=== PATIENT | male | born 1965 | race Caucasian/White ===

== ENCOUNTER 2016-05-01 10:30 | Outpatient (CLI) | payer OTHER ==
--- NOTE | 2016-05-01 12:54 | DIAGNOSTIC IMAGING REPORT ---
PROCEDURE: MR LOWER EXT JOINT WO CONT-RT INDICATION: Right knee medial pain, initial encounter TECHNIQUE: T1 and STIR sagittal, axial, coronal and coronal-oblique images. COMPARISON: Outside right knee x-ray 04/23/2016 FINDINGS: Normal cruciate and collateral ligaments. Bucket-handle tear of the medial meniscus with mild chondromalacia. Normal lateral meniscus. Normal quadriceps and patellar tendons. There is fragmentation of the anterior tibial tubercle with minor inflammatory changes. 2.5 cm long popliteal cyst. There is a 4 x 2 x 0.6 cm multi septated fluid collection along the posterior medial aspect of the medial femoral condyle. There is no joint effusion. IMPRESSION: 1. 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 Fragmentation of the anterior tibial tubercle with minor inflammatory changes 3. 2.5 cm popliteal cyst 4. Multiseptated fluid collection along the posterior medial aspect of the medial femoral condyle
== END 2016-05-01 23:00 ==
LOC: MRI SRH 10:30
DX: S83.211A Bucket-handle tear of medial meniscus, current injury, right knee, initial encounter (principal); M71.21 Synovial cyst of popliteal space [Baker], right knee; M94.261 Chondromalacia, right knee

== ENCOUNTER 2016-05-17 12:05 | Outpatient (CLI) | payer OTHER ==
--- NOTE | 2016-05-17 12:38 | DIAGNOSTIC IMAGING REPORT ---
PROCEDURE: XR CHEST 2 VIEW INDICATION: PRE OP TECHNIQUE: PA and lateral views. COMPARISON: None. FINDINGS: Lungs are clear. Heart and mediastinum are normal. Thorax is normal. IMPRESSION: 1. Negative chest.
== END 2016-05-17 23:00 ==
LOC: RT SRH 12:05
DX: Z01.810 Encounter for preprocedural cardiovascular examination (principal); Z01.818 Encounter for other preprocedural examination; R00.1 Bradycardia, unspecified

== ENCOUNTER 2016-05-19 06:12 | Day surgery (SDC) | payer OTHER ==
--- NOTE | 2016-05-19 08:04 | Preoperative Progress Note ---
Preop Note Details Current Status: No Changes Physical Exam: No Changes Necessity: Still desired/necessary Other: CV Reviewed, Respiratory Reviewed, Review JOSEPH notes & Vitals
--- NOTE | 2016-05-19 08:04 | Preoperative Progress Note ---
Preop Note Details Current Status: No Changes Physical Exam: No Changes Necessity: Still desired/necessary Other: CV Reviewed, Respiratory Reviewed, Review JOSEPH notes & Vitals
--- NOTE | 2016-05-19 09:09 | Postoperative Progress Note ---
Postop Progress Note Preoperate Diagnosis: Displaced old bucket handle medial meniscus tear, right. Postoperative Diagnosis: same Surgeon: Fili Aranda MD Anesthesia: General ETT Findings: See dictation Procedure: Arthroscopic subtotal right medial menisectomy Complications? No Condition: Stable EBL: <10 mL Fluid(s): 600 mL Blood Administered: None Specimen(s) removed? No Grafts or Implants? No . (See nursing notes for details of grafts/implants)
--- NOTE | 2016-05-19 09:09 | Postoperative Progress Note ---
Postop Progress Note Preoperate Diagnosis: Displaced old bucket handle medial meniscus tear, right. Postoperative Diagnosis: same Surgeon: iFli Aranda MD Anesthesia: General ETT Findings: See dictation Procedure: Arthroscopic subtotal right medial menisectomy Complications? No Condition: Stable EBL: <10 mL Fluid(s): 600 mL Blood Administered: None Specimen(s) removed? No Grafts or Implants? No . (See nursing notes for details of grafts/implants)
[2016-05-19] MEDS ORDERED: NORCO1 TA1 PO (09:28)
--- NOTE | 2016-05-19 14:48 | OPERATIVE REPORT ---
DATE OF SURGERY: 05/19/2016 SURGEON: Fili Aranda MD PREOPERATIVE DIAGNOSIS: 1. 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 Arthroscopic subtotal right medial meniscectomy ANESTHESIA: General. ESTIMATED BLOOD LOSS: Less than 10 mL. FLUIDS: Blood replacement: 600 mL intravenous crystalloid fluids. PATHOLOGY SPECIMEN: None. DRAINS: None. COMPLICATIONS: None apparent. CONDITION: The patient, leaving the operating room, was stable and satisfactory. 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 He continues to have popping, locking, and catching symptoms. An MRI confirms a displaced bucket-handle medial meniscus tear. He was indicated for the above-listed surgery to help with his mechanical symptoms and hopefully slow the progression of degenerative joint disease. SURGICAL FINDINGS: Preoperative imaging was confirmed. The knee was stable to Ligamentous exam under anesthesia. There were some grade 1 chondral changes on the retropatellar surface and grade 1-2 chondral changes in the medial compartment. The lateral meniscus, anterior and posterior cruciate ligaments, popliteal tendon were all intact. SURGICAL TECHNIQUE: The patient was identified in the preoperative holding area. All of his questions were further invited and answered to his satisfaction. I initialed his knee with his consent. He was seen and interviewed by Anesthesia and nursing team members, and brought back to operating room #2 at [facility], where he was placed supine on the OR table and general anesthesia was administered along with 2 grams of cefazolin intravenously for antibiotic prophylaxis. Pneumatic compression device was brought on the nonoperative lower extremity for thromboembolic prophylaxis during the patient's time in the operating room. The patient was positioned with a bump behind the operative hip and transversely across the foot of the table on the operative side. The tourniquet was placed with adequate padding about the proximal aspect of the right upper leg and isolated off with plastic adhesive U drape. A surgical pause was completed, confirming correct patient, operative site, procedure, and appropriate availability of instruments, appropriate perioperative antibiotic delivery and thromboembolic prophylaxis as described above. Everyone in the room , including surgical, nursing and anesthetic team members, were in agreement that we should proceed. The leg was circumferentially prepped with ChloraPrep and the tourniquet to the tips of the toes draped free in a water-proof, sterile fashion for surgery. The knee was inflated with 0.25% Marcaine via superolateral portal position. The portal was established for outflow. The knee was then flexed. The anterolateral portal was established for the arthroscope. The knee was systematically examined, beginning in the suprapatellar pouch. The retropatellar surface, femoral trochlea, distal femoral condyles, medial gutter and medial compartment in the valgus stress position. Anteromedial portal was established under spinal needle guidance. The complex displaced bucket-handle tear of the medial meniscus was readily apparent once we entered into the medial gutter, in the medial compartment. It was chronic, and the meniscal displacement was not able to be reduced with a nerve hook. The anterior and posterior cruciate ligaments were seen to be intact, as was the popliteal tendon and lateral meniscus when we entered the figure-of- four position. We then went back to the valgus stress position and examined the lateral gutter and popliteal tendon sheath and found no loose bodies there. A biter was then brought in, and the posterior horn of the displaced bucket- handle tear of the medial meniscus was transected. The meniscus was then grasped and pulled through the anteromedial portal. The portal was large enough for us to introduce the shaver and to trim up the free edge of the residual meniscus back to a stable rim. Ultimately, an arthroscopic scissors was used to divide the attachment of the displaced bucket- handle fragment from the anterior root. The shaver was reintroduced into the knee, and the final unstable portions of the meniscus were removed and final arthroscopic pictures taken, to be charted and given to the patient. The portals were closed with nylon mattress sutures. The knee was reinflated with 0.25% Marcaine with epinephrine, and the sterile dressing of Xeroform, 4 x 4's, ABDs, Kerlix, and Marcos wrap were applied. The patient was undraped, reversed from anesthesia and brought to the recovery room in stable and satisfactory condition, having tolerated the procedure well, without apparent complication. All sponge, needle and instrument counts were reported correct prior to leaving the out. Postoperative plan: The patient will be weightbearing as tolerated, range of motion ad. adina. He may remove his dressing in 3 days' time, wash with soap and water and blot dry. Do not scrub, do not immerse until sutures removed in clinic in approximately 2 weeks' time. He will take aspirin 325 mg enteric-coated twice daily for 6 weeks for thromboembolic prophylaxis. If he is doing well, he may be able to keep his trip to [facility] scheduled in approximately 4 weeks' time. He will return to work after he returns from [facility].
== END 2016-05-19 11:56 ==
LOC: OR SRH 06:12 → SCU SRH 06:19 → OR SRH 07:30
PROVIDERS: Orthopaedic Surgery
PROC: 0SBC4ZZ Excision of Right Knee Joint, Percutaneous Endoscopic Approach (ICD-10-PCS; principal; 2016-05-19 07:30)
DX: M23.231 Derangement of other medial meniscus due to old tear or injury, right knee (principal)
CPT/HCPCS: 29240; 50002; 60001; 70002; 80011; 80425; 80575; 82591; 83419; 83774; 84044